=== PATIENT | female | born 1975 | race Caucasian/White ===

== ENCOUNTER → 2017-07-22 | Outpatient (CLI) | payer OTHER ==
[~2017-07-22] MED LIST: ABILIFY5 MG PO; ALBUTEROL2 PUFFS/17 IN; AMOXIL500 MG PO; BACLOFEN20 MG PO; BACTRIM DS 8001 TAB PO; BENADRYL25 M1 PO; BENZONATATE200 MG PO; CIPRO500 MG OR; DARVOCET-N 1001 EACH PO; FLAGYL500 MG PO; HYDROCODONE1 TABLET PO; IBU-8800 MG PO; KEFLEX 500MG.500 MG PO; LEVAQUIN 750 M750 MG PO; LORTAB 5/500 501 TAB PO; MEDROL 4MG. DOSE4 MG PO; MOTRIN 600MG.600 MG PO; NAPROSYN 500MG500 MG PO; NOMEDS *; NOMEDS XX; PEN-VK500 MG PO; PERCOCET 5/3251 EACH PO; SEPTRA DS 800 M1 TAB PO; SULFAMETHOXAZOL1 TA6 PO; ULTRAM 50 MG TA50 MG PO; VICODIN 5/500 T1 TAB PO; VICODIN 7.5/501 EACH PO; VOLTAREN75 MG PO; XANAX 1MG TABLET1 MG PO; ZANTAC 300300 MG PO; ZOFRAN ODT8 MG PO; [UNRECOGNIZED DRUG - OTHER] MR; [UNRECOGNIZED DRUG - OTHER] TP
--- NOTE | 2017-07-22 10:00 | RADIOLOGY REPORT PS360 ---
EXAM: Barium swallow/esophagram. INDICATION: Dysphasia, burning sensation in throat ORDERING PHYSICIAN: Tony Whitfield MD PATIENT AGE: 41 years COMPARISON: None TECHNIQUE: In the upright position the patient was observed to swallow barium in both the AP and lateral view. The cervical esophagus was examined under fluoroscopy with images obtained. The patient was then placed prone in the right anterior oblique position and was observed to swallow barium with Valsalva technique . FLUOROSCOPY TIME: 53 seconds FINDINGS: There was no evidence of aspiration. There was normal peristalsis. No filling defects or mucosal abnormalities. No masses or strictures. No hernia is apparent IMPRESSION: Negative barium swallow.
--- NOTE | 2017-07-22 10:04 | RADIOLOGY REPORT PS360 ---
US THYROID HISTORY: THYROID NODULE ORDERING PHYSICIAN: Tony Whitfield MD PATIENT AGE: 41 years COMPARISON: None FINDINGS: Right lobe: The right lobe measures 5.3 x 3.3 x 3.8 cm. There is a 4.7 x 2.4 cm mixed echogenic nodule involving nearly the entire right lobe of the thyroid gland having both solid and cystic components. Left lobe: 4.5 x 1.5 1.4 cm. No nodules Isthmus: Unremarkable IMPRESSION: 4.7 x 2.4 cm complex nodule of the right lobe of thyroid gland. Suggest FNA of this nodule.
[2017-07-23 04:38] LABS: Thyroid Peroxidase (TPO) Ab 13 IU/mL (0-34)
[2017-07-23 12:36] LABS: Thyroglobulin Antibody <1.0 IU/mL (0.0-0.9)
== END ==
LOC: LAB 08:58 → RAD 08:58
PROVIDERS: Otolaryngology
DX: R13.13 Dysphagia, pharyngeal phase (principal); E04.1 Nontoxic single thyroid nodule

== ENCOUNTER → 2017-08-12 | Outpatient (CLI) | payer MEDICAID ==
--- NOTE | 2017-08-12 16:33 | RADIOLOGY REPORT PS360 ---
US BIOPSY OR PARACENTESIS, US THYROID HISTORY: RT THYROID NODULE ORDERING PHYSICIAN: Tony Whitfield MD PATIENT AGE: 41 years COMPARISON: 07/22/2017. Prebiopsy ultrasound: Complex nodule the right lobe of the thyroid gland once again noted at 4.2 x 2.5 cm containing both cystic and solid components. TECHNIQUE: Following obtaining informed consent, using aseptic technique and local anesthesia with buffered lidocaine, fine-needle aspiration was performed of the nodule of interest using sonographic guidance. 3 passes were made into the nodule with a 25-gauge needle. Specimen was given to cytology. The patient tolerated the procedure well without evidence of immediate complications and left the ultrasound suite in stable condition. CYTOLOGY:Pending IMPRESSION: Uneventful ultrasound-guided fine-needle aspiration of the right lobe of the thyroid gland
== END ==
LOC: RAD 10:00
PROC: 0G9H3ZX Drainage of Right Thyroid Gland Lobe, Percutaneous Approach, Diagnostic (ICD-10-PCS; principal; 2017-08-12)
DX: D49.7 Neoplasm of unspecified behavior of endocrine glands and other parts of nervous system (principal)

== ENCOUNTER → 2017-08-27 | Outpatient (CLI) | payer MEDICAID | LOC: LAB 17:25 | DX: D49.7 Neoplasm of unspecified behavior of endocrine glands and other parts of nervous system (principal) ==

== ENCOUNTER → 2017-09-05 | Outpatient (CLI) | payer MEDICAID ==
--- NOTE | 2017-09-05 10:03 | RADIOLOGY REPORT PS360 ---
PROCEDURE: 2-D M-mode and color Doppler study INDICATIONS FOR THE TEST: Chest pain+ COPD Heart Murmur Tobacco Smoking+ Palpitations+ Fatigue+ Syncope Edema+ Hypertension Diabetes Mellitus Rheumatic Fever SOB AU+Obesity Hyperlipidemia Family History HD+ Additional History dizziness PATIENT INFORMATION HEIGHT: 65 WEIGHT: 210 GENDER: Female B/P: 115/58 2-D/M-MODE INTERPRETATION: 2-D MEASUREMENTS OBSERVED VALUES IN CMS Right Ventricular Dimension (RVDd) 2.0 Interventricular Septum (Thickness)(IVsd) 1.1 Left Ventricular Internal Dimensions(LVIDd) 5.1 Left Ventricular Posterior Wall (Thickness)(LVPWd) 1.1 Aortic Root 2.7 Aortic Cusp Separation 2.0 Left Atrial Dimensions (LAD) 3.4 2D 1. Left atrium is normal size, left ventricle is normal size, left ventricle wall thickness is upper limit of the normal, there is preserved left ventricular systolic function, visually estimated ejection fraction 55% with no obvious regional wall motion abnormality. 2. The right atrium and right ventricle are normal size and contractility. 3. The aortic, mitral and tricuspid valves are grossly normal. 4. The pulmonic valve is poorly visualized. 5. No significant pericardial effusion noted. DOPPLER INTERROGATION: Doppler interrogation of the aortic, mitral and tricuspid valvular presence of mild mitral and tricuspid regurgitation, tricuspid regurgitant jet velocity insufficient for calculation of the right ventricular systolic pressure, diastolic parameters are within normal range. CONCLUSION: 1. Normal left ventricular size, preserved left ventricular systolic function, visually estimated ejection fraction 55% with no obvious regional wall motion abnormality, diastolic parameters are within normal range. 2. Mild mitral and tricuspid regurgitation. 3. No significant pericardial effusion noted.
== END ==
LOC: RT 08-29 08:00
DX: R07.9 Chest pain, unspecified (principal); R06.09 Other forms of dyspnea; Z72.0 Tobacco use; Z82.49 Family history of ischemic heart disease and other diseases of the circulatory system; Z86.59 Personal history of other mental and behavioral disorders